=== PATIENT | male | born 1985 | race Caucasian/White ===

== ENCOUNTER 2020-03-22 07:35 | Outpatient (CLI) | payer OTHER ==
--- NOTE | 2020-03-22 12:27 | MRI ---
MRI OF LEFT THUMB PERFORMED WITHOUT CONTRAST ENHANCEMENT: Date: 03/22/2020 HISTORY: Injury to left thumb 3 months ago, persistent pain. Area of patient's pain was marked. It is on the d orsal side of the first metacarpophalangeal joint. FINDINGS: The marrow signal change within the metacarpal and phalanges of the thumb is normal. There are some tenosynovitis changes of the flexor pollicis longus. In addition, there is evidence of some muscle stranding with some edema change near the musculotendinous junction of the flexor pollic is brevis muscle. This involves more of the area of the superficial head attachment or distal inserti on. The extensor pollicis longus and brevis tendons appear intact. There is a small joint effusion at the first metacarpophalangeal joint. Some very mild arthritic baca ge is noted. The visualized portions of the carpal tunnel appear unremarkable. IMPRESSION: Some mild tenosynovitis changes of the FPL tendon. In addition, there is evidence of some mild muscle strain of the flexor pollicis brevis at the musculotendinous insertion distally along the more volar aspect of the thumb. In the region of patient's stated pain, the extensor tendons appear intact. The re is a small joint effusion at the first metacarpophalangeal joint level and some very mild arthriti c change. POS: DUONG
== END 2020-03-22 07:36 | disposition home or self-care (01) ==
LOC: TBSIIMAG 07:35
PROVIDERS: ATTEND Nurse Practitioner Family
DX: S69.92XD Unspecified injury of left wrist, hand and finger(s), subsequent encounter (principal); M25.442 Effusion, left hand; S66.012A Strain of long flexor muscle, fascia and tendon of left thumb at wrist and hand level, initial encounter; M19.042 Primary osteoarthritis, left hand

== ENCOUNTER 2023-01-16 14:22 | Outpatient (CLI) | payer OTHER | END 2023-01-16 14:23 | disposition home or self-care (01) | LOC: RAD 14:22 | PROVIDERS: ATTEND Nurse Practitioner Family | DX: S49.92XA Unspecified injury of left shoulder and upper arm, initial encounter (principal) ==